=== PATIENT | male | born 1955 | race Caucasian/White ===

== ENCOUNTER 2023-10-12 19:48 | Emergency (ER) | payer MEDICARE, OTHER ==
[2023-10-12] MEDS ORDERED: Sodium Chloride 0.9% 1,000 ML IV ONE (20:00)
[2023-10-12] MEDS ORDERED: Adenosine 6 MG/2 ML SDV IVPUSH ONE ×2 (20:01→21:30)
[2023-10-12 20:06] LABS: BASOPHILS ABSOLUTE AUTO 0.08 K/uL (0.00-0.10); EOSINOPHILS ABSOLUTE AUTO 0.05 K/uL (0.00-0.40); EOSINOPHILS PERCENT AUTO 0.6 % (0.0-5.4); HEMATOCRIT 46.2 % (38.4-49.7); HEMOGLOBIN 16.4 g/dL (12.9-16.9); IMMATURE GRAN ABSOLUTE AUTO 0.01 K/uL (0.00-0.23); IMMATURE GRAN PERCENT AUTO 0.1 % (0.0-0.7); LYMPHOCYTES ABSOLUTE AUTO 1.88 K/uL (0.8-3.3); LYMPHOCYTES PERCENT AUTO 24.1 % (11.4-47.7); MEAN CORPUSCULAR HEMOGLOBIN 31.7 pg (31.6-35.5); MEAN CORPUSCULAR HGB CONC 35.5 g/dL (31.6-35.5); MEAN CORPUSCULAR VOLUME 89.2 fL (81.4-99.0); MONOCYTES ABSOLUTE AUTO 1.92 K/uL (0.20-0.90); MONOCYTES PERCENT AUTO 24.6 % (3.3-12.6); NEUTROPHILS ABSOLUTE AUTO 3.87 K/uL (1.0-7.6); NEUTROPHILS PERCENT AUTO 49.6 % (40.0-78.1); PLATELET COUNT,PLT 242 K/uL (130-375); RED BLOOD CELL COUNT 5.18 M/uL (4.14-5.76); WHITE BLOOD CELL COUNT,WBC 7.8 K/uL (3.2-11.0)
[2023-10-12 20:29] LABS: ANION GAP 13.7 mmol/L (5.0-14.0); CALCIUM 8.5 mg/dL (8.5-10.1); CREATININE 1.3 mg/dL (0.8-1.3); EST CRCL DRUG DOSING (CG) 59.53 mL/min; POTASSIUM,K 3.7 mmol/L (3.6-5.2); TROPONIN I HIGH SENSITIVITY 22.7 pg/mL (<=60.3)
[2023-10-12] MEDS ORDERED: Adenosine 6 MG/2 ML SDV ONE (20:29)
[2023-10-12] MEDS ORDERED: Metoprolol Tartrate 5 MG/5 ML SDV ONE (20:31)
[2023-10-12] MEDS ORDERED: Propofol 200 MG/20 ML SDV ONE (21:01)
[2023-10-12 21:32] LABS: CORONAVIRUS COVID-19 NAA POSITIVE (NEGATIVE); INFLUENZA A NAA NEGATIVE (NEGATIVE); INFLUENZA B NAA NEGATIVE (NEGATIVE); RESPIRATORY SYNCYTIAL VIR NAA NEGATIVE (NEGATIVE)
[2023-10-12] MEDS ORDERED: Metoprolol Tartrate 25 MG Tab PO ONE (21:49)
[2023-10-12] MEDS ORDERED: Metoprolol Tartrate 5 MG/5 ML SDV IVPUSH ONE (21:58)
== END 2023-10-12 23:38 | disposition home or self-care (01) ==
LOC: JP.ED 19:48
DX: U07.1 COVID-19 (principal); I47.10 Supraventricular tachycardia, unspecified; Z79.82 Long term (current) use of aspirin
CPT/HCPCS: 0241U; 36415; 71045; 80048; 84484; 85025; 93005; 96361; 96374; 96375; 99285; A9270; J0153; J3490; J7030; J2704

== ENCOUNTER 2023-10-13 09:01 | Emergency (ER) | payer MEDICARE, OTHER ==
[2023-10-13] MEDS ORDERED: Metoprolol Tartrate 50 MG Tab PO ONE (09:18)
== END 2023-10-13 12:55 | disposition home or self-care (01) ==
LOC: JP.ED 09:01
DX: I47.10 Supraventricular tachycardia, unspecified (principal); Z79.82 Long term (current) use of aspirin
CPT/HCPCS: 93306; 99284; A9270